=== PATIENT | male | born 1985 | race Caucasian/White ===

== ENCOUNTER 2024-12-10 18:16 | Emergency (ER) | payer OTHER ==
[2024-12-10 18:20] VITALS: RESP 18
[2024-12-10] MEDS: KETOROLAC 15 MG/ML 1 ML VIAL IM STA (19:04)
--- NOTE | 2024-12-10 19:06 | ED ---
General Adult HPI - General Chief complaint: Extremity Injury, Upper Stated complaint: Right Shoulder Injury Time Seen by Provider: 12/10/24 18:22 Source: patient Mode of arrival: ambulatory Limitations: no limitations - History of Present Illness Initial comments: 39-year-old male presenting with chief complaint of right arm pain. Patient states that he was lifting a box when he felt tingling in the arm and pain going up from his elbow to his shoulder. States that his bicep appears very swollen at this time. He is having a lot of pain. He is getting some tingling as well. - Related Data Allergies Allergy/AdvReac Type Severity Reaction Status Date / Time cefaclor [From Ceclor] AdvReac Nausea & Verified 12/10/24 18:20 Vomiting Review of Systems ROS Statement: Those systems with pertinent positive or pertinent negative responses have been documented in the HPI. ROS Other: All systems not noted in ROS Statement are negative. Past Medical History Past Medical History: No Reported History Additional Past Surgical History / Comment(s): kidney Past Psychological History: No Psychological Hx Reported Smoking Status: Current every day smoker Past Alcohol Use History: None Reported Past Drug Use History: Marijuana General Exam Limitations: no limitations General appearance: alert, in no apparent distress Head exam: Present: atraumatic, normocephalic, normal inspection Eye exam: Present: normal appearance, EOMI Neck exam: Present: normal inspection. Absent: meningismus Respiratory exam: Absent: respiratory distress Cardiovascular Exam: Present: regular rate Right Upper Arm exam: Present: tenderness, swelling, deformity (Positive Uriah sign). Absent: full ROM Vascular: Present: radial pulse (2+). Absent: vascular compromise Neurological exam: Present: alert, oriented X3 Psychiatric exam: Present: normal affect, normal mood Skin exam: Present: warm, dry, normal color Course Vital Signs 12/10/24 18:17 Temperature 98.3 F Pulse Rate 79 Respiratory 18 Rate Blood Pressure 154/99 O2 Sat by Pulse 100 Oximetry Medical Decision Making - Medical Decision Making Was pt. sent in by a medical professional or institution (, PA, BRIDGE MANAGER, urgent care, hospital, or detention...) When possible be specific @ -No Did you speak to anyone other than the patient for history (EMS, parent, family, police, friend...)? What history was obtained from this source @ -No Did you review nursing and triage notes (agree or disagree)? Why? @ -I reviewed and agree with nursing and triage notes Were old charts reviewed (outside hosp., previous admission, EMS record, old EKG, old radiological studies, urgent care reports/EKG's, detention records)? Report findings @ -No old charts were reviewed Differential Diagnosis (chest pain, altered mental status, abdominal pain women, abdominal pain men, vaginal bleeding, weakness, fever, dyspnea, syncope, headache, dizziness, GI bleed, back pain, seizure, CVA, palpatations, mental health, musculoskeletal)? @ -Differential Musculoskeletal Muscular strain, contusion, ligament sprain, fracture, arthritis, septic arthritis, bursitis, cellulitis, muscle spasm, nerve compression, DVT, arterial occlusion, herpes zoster, electrolyte abnormality, tumor.... This is not meant to be in all inclusive list EKG interpreted by me (3pts min.). @ -As above X-rays interpreted by me (1pt min.). @ -X-ray shows no fracture or dislocation CT interpreted by me (1pt min.). @ -None done U/S interpreted by me (1pt. min.). @ -None done What testing was considered but not performed or refused? (CT, X-rays, U/S, labs)? Why? @ -None What meds were considered but not given or refused? Why? @ -None Did you discuss the management of the patient with other professionals (professionals i.e. , PA, BRIDGE MANAGER, lab, RT, psych nurse, long term care social worker, type casting machine operator, teacher, electrical engineering drafting officer, counseling case manager)? Give summary @ -No Was smoking cessation discussed for >3mins.? @ -No Was critical care preformed (if so, how long)? @ -No Were there social determinants of health that impacted care today? How? (Homelessness, low income, unemployed, alcoholism, drug addiction, transportation, low edu. Level, literacy, decrease access to med. care, half-way, rehab)? @ -No Was there de-escalation of care discussed even if they declined (Discuss DNR or withdrawal of care, Hospice)? DNR status @ -No What co-morbidities impacted this encounter? (DM, HTN, Smoking, COPD, CAD, Cancer, CVA, ARF, Chemo, Hep., AIDS, mental health diagnosis, sleep apnea, morbid obesity)? @ -None Was patient admitted / discharged? Hospital course, mention meds given and route, prescriptions, significant lab abnormalities, going to OR and other pertinent info. @ -39-year-old male presenting with chief complaint of right arm pain. Started after he was lifting a heavy box. He does have a positive Uriah sign on exam. Neurovascularly intact. X-ray negative for acute osseous process. Most likely bicep tear/rupture. Patient came in with a sling that he is instructed to keep on. Educated on supportive management and pain control at home. Follow-up with orthopedics. Follow-up with PCP. Report back to ER with any new or worsening symptoms. Discussed return parameters and answered all questions. Patient conveyed verbal understanding and agreed to the plan. I discussed this case in detail with my attending Dr. Moreland Undiagnosed new problem with uncertain prognosis? @ -No Drug Therapy requiring intensive monitoring for toxicity (Heparin, Nitro, Insulin, Cardizem)? @ -No Were any procedures done? @ -No Diagnosis/symptom? @ -Bicep tendon tear Acute, or Chronic, or Acute on Chronic? @ -Acute Uncomplicated (without systemic symptoms) or Complicated (systemic symptoms)? @ -Uncomplicated Side effects of treatment? @ -No Exacerbation, Progression, or Severe Exacerbation? @ -No Poses a threat to life or bodily function? How? (Chest pain, [place], [place], pneumonia, PE, COPD, DKA, ARF, appy, cholecystitis, CVA, Diverticulitis, Homicidal, Suicidal, threat to staff... and all critical care pts) @ -Potential if the patient does not follow-up with orthopedics as instructed Disposition Clinical Impression: Biceps muscle tear Disposition: HOME SELF-CARE Condition: Good Instructions (If sedation given, give patient instructions): Tendon Rupture (ED) Additional Instructions: Follow-up with orthopedics. Report back to ER with any new or worsening symptoms. Take Motrin and Tylenol as needed for pain control. Keep your arm in the sling until instructed by orthopedics. Rest and ice the arm. Is patient prescribed a controlled substance at d/c from ED?: No Referrals: Bassam Estrada MD [Primary Care Provider] - 1-2 days Ovi Shen MD [STAFF PHYSICIAN] - 1-2 days Time of Disposition: 19:24
[2024-12-10] MEDS: Acetaminophen-Codeine 300-30mg TAB PO STA (19:08)
--- NOTE | 2024-12-10 19:08 | XR ---
EXAMINATION TYPE: XR humerus RT DATE OF EXAM: 12/10/2024 6:51 PM COMPARISON: None CLINICAL INDICATION: Male, 39 years old with history of injury, pain TECHNIQUE: XR humerus RT examined in frontal and lateral projections. FINDINGS: No evidence of acute osseous pathology, joint dislocation, or soft tissue swelling. The rem aining portions of the visualized chest are unremarkable. IMPRESSION: No acute osseous pathology. [facility], , 12/10/2024 7:06 PM
[2024-12-10] MEDS: ACET/COD 300 MG/30 MG STARTER PACK TAB BTL PO STA (19:30)
[2024-12-10 19:41] VITALS: BP 144/96; PULSE 70; TEMP 98.2
== END 2024-12-10 19:33 | disposition home or self-care (01) ==
LOC: EC 18:16
DX: S46.211A Strain of muscle, fascia and tendon of other parts of biceps, right arm, initial encounter (principal); F17.200 Nicotine dependence, unspecified, uncomplicated; Z88.1 Allergy status to other antibiotic agents; X50.0XXA Overexertion from strenuous movement or load, initial encounter
CPT/HCPCS: 99283

== ENCOUNTER 2024-12-24 10:41 | Day surgery (SDC) | payer OTHER ==
[2024-12-24] MEDS: IV FLUID CONTINUATION 1,000 ML IV ONE (11:21)
[2024-12-24] MEDS ORDERED: fentaNYL (PF) 50 MCG/ML 2 ML AMP IVP ONE (11:30)
[2024-12-24] MEDS: MIDAZOLAM 2 MG/2 ML VIAL IVP ONE (11:49)
[2024-12-24] MEDS: ONDANSETRON 4 MG/2 ML VIAL IVP STA (12:03)
[2024-12-24] MEDS: LACTATED RINGERS 1,000 ML IV SCH (12:03)
[2024-12-24] MEDS: DEXAMETHASONE SOD PHOSPHATE 4 MG/ML 1 ML VIAL IVP STA (12:03)
[2024-12-24 12:14] VITALS: TEMP 97.9
[2024-12-24] MEDS ORDERED: PROPOFOL 10 MG/ML 20 ML VIAL IV ONE (12:21)
[2024-12-24] MEDS ORDERED: fentaNYL (PF) 50 MCG/ML 2 ML AMP ONE (12:21)
[2024-12-24] MEDS ORDERED: ROPIVACAINE 5 MG/ML 30 ML VIAL ONE (12:21)
[2024-12-24] MEDS ORDERED: LIDOCAINE 1% INJ 10MG/ML (20 ML MDV) ONE (12:21)
[2024-12-24] MEDS ORDERED: GLYCOPYRROLATE 0.2 MG/ML 2 ML VIAL ONE (12:21)
[2024-12-24] MEDS ORDERED: DEXAMETHASONE SOD PHOSPHATE 4 MG/ML 1 ML VIAL ONE (12:21)
[2024-12-24] MEDS ORDERED: PHENYLEPHRINE-0.9% NACL SYG 1,000 MCG/10 ML SYRINGE ONE (12:21)
[2024-12-24] MEDS ORDERED: MIDAZOLAM 2 MG/2 ML VIAL ONE (12:21)
--- NOTE | 2024-12-24 12:23 | P.ANPRN ---
Procedure Note - Anesthesia - Nerve Block Performed Right Infraclavicular Single Time Out Performed: Yes Date of Procedure: 12/24/24 Procedure Start Time: 11:49 Procedure Stop Time: 11:58 Location of Patient: PreOp Indication: Acute Post-Operative Pain, Requested by Surgeon Sedation Type: Sedate with meaningful contact maintained Preparation: Sterile Prep, Sterile Dressing Position: Supine Catheter: None Needle Types: Facet Needle Gauge: 20 Ultrasound used to visualize needle placement: Yes Ultrasound used to observe medication spread: Yes Injectate: 0.5% Ropivacaine (see comment for volume) (30 ml + decadron 4 mg) Blood Aspirated: No Pain Paresthesia on Injection Noted: No Resistance on Injection: Normal Image Stored and Saved: Yes Events: Uneventful and Well Tolerated
[2024-12-24] MEDS: LACTATED RINGERS 1,000 ML IV ONE (13:02)
[2024-12-24 14:46] VITALS: RESP 16
[2024-12-24 16:06] VITALS: BP 132/91; PULSE 68
--- NOTE | 2025-01-07 12:17 | P.OP ---
Date of Procedure: 12/24/24 Procedure(s) Performed: right elbow distal biceps repair--tension slide, arthrex proximal longitudinal finder incision used. PREOPERATIVE DIAGNOSES: 1. Right elbow distal biceps rupture POSTOPERATIVE DIAGNOSES: 1. Right elbow distal biceps rupture PROCEDURES PERFORMED: 1. Right elbow distal biceps repair (tension-slide technique with biceps button and 7x10 mm PEEK interference screw) (CPT 83737) ANESTHESIA: General and regional block for postoperative pain control CYANIDE CASE HARDENER: Suzanne Aleman PA-C (assistance with: patient positioning, retraction, fixation, hemostasis, closure, dressing) COMPLICATIONS: None ESTIMATED BLOOD LOSS: Less than 10 cc TOURNIQUET: 60 min DISPOSITION: To post-anesthesia care unit INDICATIONS: Simeon is a 39 year old male with a 14 day history of right distal biceps rupture. The patient presents to the operating room for surgical repair. I have explained the details of this surgery thoroughly and also explained the potential risks and complications. These are inclusive of, but not limited to: bleeding, infection, scarring, discomfort, blood vessel and nerve damage, stiffness, weakness, need for further surgery, failure to relieve symptoms, persistence or worsening of problems, , and other risks. Patient is aware of these risks and agrees to proceed with surgery. The consent form has been signed. PROCEDURE: Appropriate consent was obtained from the patient, who was then taken to the operating room and placed in the supine position. General anesthetic was administered. The right upper extremity was prepped and draped in the usual aseptic fashion using Chloraprep. The pneumotourniquet was placed high on the arm and was inflated after exsanguination of the forearm with an Esmarch bandage. An incision approximately 4 cm in length was made on the volar aspect of the proximal forearm about 3 cm from the flexion crease. The incision was taken down through skin and then bluntly through subcutaneous tissue to fascia. The lateral antebrachial cutaneous nerve was clearly identified, mobilized and retracted gently throughout the case. Deeper dissection into the antecubital fossa was performed bluntly with dissecting scissors. The sheath of the biceps was noted to be intact. A more proximal finder incision was created above the elbow to locate, identify, and dissect free the end of the ruptured distal biceps tendon. The tendon was then passed carefully through the skin bridge to the distal incision with care to place the superficial nerves superficial to the tendon. The tendon was debrided of scar tissue and organizing tissue and sized to fit through a 7 mm sheath. A Fiberloop was used to whipstitch and lock the tendon for 2.5 cm at the stump. An ink nara was placed 1.5 cm from the end. Attention was then given to dissecting down to the radial tuberosity. Since the sheath was still intact, it was found easily. The forearm was placed into full supination and the elbow in extension. The radial tuberosity was exposed with subperiosteal retractors placed medially and laterally. The retractors were closely observed to be subperiosteal to not damage the posterior interrosseous nerve. A rongeur was used to clear the soft tissue from the radial tuberosity. Next, a 3.2 mm guide pin was placed through the the radial tuberosity bicortically. The pin was aimed 30 degrees ulnar to avoid PIN nerve injury. An 8mm reamer was used over the guide pin to create the socket for the biceps tendon. Copious irrigation was used to flush out bone debris. The sutures from the biceps tendon whipstitch were then threaded through the biceps button and the button was inserted onto the insertion handle. The button was then deployed through the far side of the socket and flipped to engage the far cortex. The button was confirmed to be engaged by pulling on the sutures. The two free ends were then used to pull the biceps tendon stump into the socket with the elbow at approximately 30 degrees of flexion. Once the tendon was noted to be at the level of the ink nara, one suture was brought through the tendon with a free needle and the sutures were tied together. The 7 x 10 mm PEEK interference screw was then deployed on the radial side of the tendon after threading one of the sutures through the dump truck driver off highway. The screw was inserted until flush with the radial surface and then the sutures were tied over the screw. The repair was then checked for integrity and found to be solid. The elbow was taken through full range of motion including pronation and supination with completely stable repair site. Subsequently, thorough irrigation was used and final hemostasis was obtained using electrocautery. 3-0 Vicryl suture was used to close the subcutaneous tissue, and running Monocryl 3-0 subcuticular stitch for the skin. Cyanoacrylate topical was applied as well as sterile dressing. The shoulder was then placed into a sling and the patient was transferred to recovery room in stable condition. Sponge and needle counts were correct.
== END 2024-12-24 16:06 | disposition home or self-care (01) ==
LOC: OR 10:41
PROVIDERS: ATTEND Orthopaedic Surgery
DX: S46.211A Strain of muscle, fascia and tendon of other parts of biceps, right arm, initial encounter (principal); G89.18 Other acute postprocedural pain; F17.210 Nicotine dependence, cigarettes, uncomplicated; Z87.442 Personal history of urinary calculi; Z88.1 Allergy status to other antibiotic agents; X58.XXXA Exposure to other specified factors, initial encounter
CPT/HCPCS: 64415; 24342; C1713; J2250; J1100; J0690; J2405; J2003; J3010; J2795; J2704; J2371; J1596